=== PATIENT | female | born 2000 | race Caucasian/White ===

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

== ENCOUNTER 2021-08-17 17:06 | Emergency (ER) | payer BC ==
[2021-08-17 19:17] LABS: Appearance,Urine Clear (Clear); Bacteria,Urine Occasional /hpf; Bilirubin,Urine Negative (Negative); Blood,Urine Negative (Negative); Color,Urine Yellow; Glucose,Urine (UA) Negative (Negative); Ketones,Urine Negative (Negative); Leukocyte Esterase,Urine Trace (Negative); Mucus,Urine Few /hpf; Nitrite,Urine Negative (Negative); PH, Urine 6.5 (5.0-8.0); Protein,Urine Trace (Negative); RBC,Urine 10 /hpf (0-5); Specific Gravity,Urine 1.029 (1.001-1.035); Squamous Epithelial Cell,Urine 1 /hpf (0-4); WBC,Urine 2 /hpf (0-5)
[2021-08-17] MEDS ORDERED: IBUPROFEN 800 MG TAB PO STA (23:17)
[2021-08-17] MEDS ORDERED: ACETAMINOPHEN TAB 500 MG TAB PO STA (23:17)
--- NOTE | 2021-08-17 23:24 | ED ---
Abdominal Pain HPI - General Chief Complaint: Abdominal Pain Stated Complaint: Abd.Pain Time Seen by Provider: 08/17/21 23:16 Source: patient, RN notes reviewed, old records reviewed Mode of arrival: ambulatory Limitations: no limitations - History of Present Illness Initial Comments: This is a 21-year-old female to the ER today for evaluation. Patient's pain today for evaluation of left lower quadrant abdominal pain. Patient has significant with recurrent abdominal pain of sudden onset started today no red similar pain before. She states she has history of cyst pain is worse. Patient has no fevers no travel history no sick contacts no known significant complaint. No medical history takes no medications. MD Complaint: abdominal pain -: hour(s) Location: LLQ Radiation: suprapubic Migration to: LLQ Severity: moderate Severity scale (1-10): 7 Quality: stabbing, sharp Consistency: constant Improves With: nothing Worsens With: nothing Associated Symptoms: nausea, vomiting Treatments Prior to Arrival: other (none) - Related Data Home Medications Medication Instructions Recorded Confirmed No Known Home Medications 12/16/17 12/16/17 Allergies Allergy/AdvReac Type Severity Reaction Status Date / Time Penicillins Allergy Unknown Verified 08/17/21 18:48 Review of Systems ROS Statement: Those systems with pertinent positive or pertinent negative responses have been documented in the HPI. ROS Other: All systems not noted in ROS Statement are negative. Past Medical History Past Medical History: Asthma Additional Past Medical History / Comment(s): dx of depression with psycotic features History of Any Multi-Drug Resistant Organisms: None Reported Past Surgical History: Ear Surgery Additional Past Surgical History / Comment(s): tubes Past Psychological History: Anxiety, Depression Smoking Status: Never smoker Past Alcohol Use History: None Reported Past Drug Use History: None Reported General Exam Limitations: no limitations General appearance: alert, in no apparent distress Head exam: Present: atraumatic, normocephalic, normal inspection Eye exam: Present: normal appearance, PERRL, EOMI. Absent: scleral icterus, conjunctival injection, periorbital swelling ENT exam: Present: normal exam, mucous membranes moist Neck exam: Present: normal inspection. Absent: tenderness, meningismus, lymphadenopathy Respiratory exam: Present: normal lung sounds bilaterally. Absent: respiratory distress, wheezes, rales, rhonchi, stridor Cardiovascular Exam: Present: normal rhythm, tachycardia, normal heart sounds. Absent: systolic murmur, diastolic murmur, rubs, gallop, clicks GI/Abdominal exam: Present: tenderness (Left lower quadrant), guarding, normal bowel sounds. Absent: distended, rebound, rigid Extremities exam: Present: normal inspection, full ROM, normal capillary refill. Absent: tenderness, pedal edema, joint swelling, calf tenderness Back exam: Present: normal inspection Neurological exam: Present: alert, oriented X3, CN II-XII intact Psychiatric exam: Present: normal affect, normal mood Skin exam: Present: warm, dry, intact, normal color. Absent: rash Course Vital Signs 08/17/21 08/18/21 18:48 03:01 Temperature 100.0 F H 98.2 F Pulse Rate 107 H 81 Respiratory 20 16 Rate Blood Pressure 127/68 124/74 O2 Sat by Pulse 99 99 Oximetry - Reevaluation(s) Reevaluation #1: 08/18/21 04:28 Record is reviewed Reevaluation #2: 08/18/21 04:28 Patient has no improvement or pain control medication Reevaluation #3: 08/18/21 04:28 Patient and her father informed results and questions have been answered Medical Decision Making - Medical Decision Making 21 female to the emergency department I for evaluation of severe abdominal pain left lower quadrant patient has fibroid uterus, otherwise no significant acute findings a patient can be discharged home to follow-up with OB - Lab Data Result diagrams: 08/18/21 01:37 08/18/21 01:37 Lab Results 08/17/21 08/17/21 08/17/21 Range/Units 19:02 19:02 23:21 WBC (4.0-11.0) k/uL RBC (3.80-5.40) m/uL Hgb (11.4-16.0) gm/dL Hct (34.0-46.0) % MCV (80.0-100.0) fL MCH (25.0-35.0) pg MCHC (31.0-37.0) g/dL RDW (11.5-15.5) % Plt Count (150-450) k/uL MPV Neutrophils % % Lymphocytes % % Monocytes % % Eosinophils % % Basophils % % Neutrophils # (1.3-7.7) k/uL Lymphocytes # (1.0-4.8) k/uL Monocytes # (0-1.0) k/uL Eosinophils # (0-0.7) k/uL Basophils # (0-0.2) k/uL Hypochromasia Microcytosis Sodium (137-145) mmol/L Potassium (3.5-5.1) mmol/L Chloride (98-107) mmol/L Carbon Dioxide (22-30) mmol/L Anion Gap mmol/L BUN (7-17) mg/dL Creatinine (0.52-1.04) mg/dL Est GFR (CKD-EPI)AfAm (>60 ml/min/1.73 sqM) Est GFR (CKD-EPI)NonAf (>60 ml/min/1.73 sqM) Glucose (74-99) mg/dL Calcium (8.4-10.2) mg/dL Total Bilirubin (0.2-1.3) mg/dL AST (14-36) U/L ALT (4-34) U/L Alkaline Phosphatase (38-126) U/L Total Protein (6.3-8.2) g/dL Albumin (3.5-5.0) g/dL Amylase (30-110) U/L Lipase (23-300) U/L Urine Color Yellow Urine Appearance Clear (Clear) Urine pH 6.5 (5.0-8.0) Ur Specific [place] 1.029 (1.001-1.035) Urine Protein Trace H (Negative) Urine Glucose (UA) Negative (Negative) Urine Ketones Negative (Negative) Urine Blood Negative (Negative) Urine Nitrite Negative (Negative) Urine Bilirubin Negative (Negative) Urine Urobilinogen 2.0 (<2.0) mg/dL Ur Leukocyte Esterase Trace H (Negative) Urine RBC 10 H (0-5) /hpf Urine WBC 2 (0-5) /hpf Ur Squamous Epith Cells 1 (0-4) /hpf Urine Bacteria Occasional H (None) /hpf Urine Mucus Few H (None) /hpf Urine HCG, Qual Not Detected (Not Detectd) Coronavirus (PCR) Not Detected (Not Detectd) 08/18/21 08/18/21 Range/Units 01:37 01:37 WBC 9.2 (4.0-11.0) k/uL RBC 4.79 (3.80-5.40) m/uL Hgb 11.6 (11.4-16.0) gm/dL Hct 37.1 (34.0-46.0) % MCV 77.5 L (80.0-100.0) fL MCH 24.2 L (25.0-35.0) pg MCHC 31.3 (31.0-37.0) g/dL RDW 15.7 H (11.5-15.5) % Plt Count 403 (150-450) k/uL MPV 6.1 Neutrophils % 66 % Lymphocytes % 24 % Monocytes % 7 % Eosinophils % 1 % Basophils % 0 % Neutrophils # 6.1 (1.3-7.7) k/uL Lymphocytes # 2.2 (1.0-4.8) k/uL Monocytes # 0.6 (0-1.0) k/uL Eosinophils # 0.1 (0-0.7) k/uL Basophils # 0.0 (0-0.2) k/uL Hypochromasia Moderate Microcytosis Slight Sodium 135 L (137-145) mmol/L Potassium 3.6 (3.5-5.1) mmol/L Chloride 101 (98-107) mmol/L Carbon Dioxide 24 (22-30) mmol/L Anion Gap 10 mmol/L BUN 9 (7-17) mg/dL Creatinine 0.62 (0.52-1.04) mg/dL Est GFR (CKD-EPI)AfAm >90 (>60 ml/min/1.73 sqM) Est GFR (CKD-EPI)NonAf >90 (>60 ml/min/1.73 sqM) Glucose 91 (74-99) mg/dL Calcium 9.4 (8.4-10.2) mg/dL Total Bilirubin 0.9 (0.2-1.3) mg/dL AST 31 (14-36) U/L ALT 28 (4-34) U/L Alkaline Phosphatase 99 (38-126) U/L Total Protein 7.4 (6.3-8.2) g/dL Albumin 4.0 (3.5-5.0) g/dL Amylase 67 (30-110) U/L Lipase 55 (23-300) U/L Urine Color Urine Appearance (Clear) Urine pH (5.0-8.0) Ur Specific [place] (1.001-1.035) Urine Protein (Negative) Urine Glucose (UA) (Negative) Urine Ketones (Negative) Urine Blood (Negative) Urine Nitrite (Negative) Urine Bilirubin (Negative) Urine Urobilinogen (<2.0) mg/dL Ur Leukocyte Esterase (Negative) Urine RBC (0-5) /hpf Urine WBC (0-5) /hpf Ur Squamous Epith Cells (0-4) /hpf Urine Bacteria (None) /hpf Urine Mucus (None) /hpf Urine HCG, Qual (Not Detectd) Coronavirus (PCR) (Not Detectd) - Radiology Data Radiology results: report reviewed (Ultrasound of Groin and Pelvis Are Negative for Significant Acute Disease, CT head and pelvis is negative for acute disease), image reviewed Disposition Clinical Impression: Abdominal pain, Ovarian cyst, Uterine fibroid Disposition: HOME SELF-CARE Condition: Good Instructions (If sedation given, give patient instructions): Pelvic Pain in Women (ED), Endometriosis (ED), Ovarian Cyst (ED) Is patient prescribed a controlled substance at d/c from ED?: No Referrals: None,Stated [Primary Care Provider] - 1-2 days
--- NOTE | 2021-08-18 00:43 | US ---
EXAMINATION TYPE: US groin LT DATE OF EXAM: 08/18/2021 COMPARISON: NONE CLINICAL HISTORY: pain. Pain within the left groin. Scanned LLQ at patient's area of pain. Hypoechoic area with hyperechoic center seen within the left groin measuring 0.8 x 1.1 x 0.7 cm. No o ther findings at this time by ultrasound. IMPRESSION: 11 mm lymph node is demonstrated. No evidence for hernia. No free fluid.
[2021-08-18] MEDS ORDERED: PANTOPRAZOLE 40 MG/10 ML VIAL IVP STA (01:29)
[2021-08-18] MEDS ORDERED: MORPHINE SULFATE 4 MG/ML SYRINGE IV STA (01:29)
[2021-08-18] MEDS ORDERED: ONDANSETRON 4 MG/2 ML VIAL IVP STA (01:29)
[2021-08-18] MEDS ORDERED: SODIUM CHLORIDE 0.9% 1,000 ML IV STA ×2 (01:29)
[2021-08-18] MEDS ORDERED: KETOROLAC 15 MG/ML 1 ML VIAL IVP STA (01:29)
[2021-08-18 01:52] LABS: Basophils % (A) 0 %; Eosinophils # (A) 0.1 k/uL (0-0.7); Eosinophils % (A) 1 %; HCT 37.1 % (34.0-46.0); HGB 11.6 gm/dL (11.4-16.0); Hypochromasia Moderate; Lymphocytes # (A) 2.2 k/uL (1.0-4.8); Lymphocytes % (A) 24 %; MCH 24.2 pg (25.0-35.0); MCHC 31.3 g/dL (31.0-37.0); MCV 77.5 fL (80.0-100.0); Mean Platelet Volume 6.1; Microcytosis Slight; Monocytes # (A) 0.6 k/uL (0-1.0); Monocytes % (A) 7 %; Neutrophils # (A) 6.1 k/uL (1.3-7.7); Neutrophils % (A) 66 %; Platelet Count 403 k/uL (150-450); RBC 4.79 m/uL (3.80-5.40); RDW 15.7 % (11.5-15.5); WBC 9.2 k/uL (4.0-11.0)
[2021-08-18 02:07] LABS: ALT 28 U/L (4-34); AST 31 U/L (14-36); African American GFR (CKD) >90 (>60 ml/min/1.73 sqM); Alkaline Phosphatase 99 U/L (38-126); Amylase 67 U/L (30-110); Anion Gap 10 mmol/L; Blood Urea Nitrogen 9 mg/dL (7-17); Calcium 9.4 mg/dL (8.4-10.2); Carbon Dioxide 24 mmol/L (22-30); Chloride 101 mmol/L (98-107); Glucose 91 mg/dL (74-99); Lipase 55 U/L (23-300); Non-African American GFR(CKD) >90 (>60 ml/min/1.73 sqM); Potassium 3.6 mmol/L (3.5-5.1); Sodium 135 mmol/L (137-145); Total Bilirubin 0.9 mg/dL (0.2-1.3); Total Protein 7.4 g/dL (6.3-8.2)
--- NOTE | 2021-08-18 02:52 | XR ---
EXAMINATION TYPE: XR KUB DATE OF EXAM: 08/18/2021 COMPARISON: NONE HISTORY: Pain TECHNIQUE: 2 views upright FINDINGS: Bowel gas pattern is normal. There is no sign of intestinal obstruction or pneumoperitoneum . Fecal pattern is normal. There is no evidence of a mass. IMPRESSION: Nonacute abdomen.
[2021-08-18 03:02] VITALS: RESP 16
--- NOTE | 2021-08-18 03:31 | US ---
EXAMINATION TYPE: US transvaginal DATE OF EXAM: 08/18/2021 COMPARISON: NONE CLINICAL HISTORY: torsion. Left-sided pain. Hx ovarian cyst. TECHNIQUE: Transvaginal (TV). Patient has not had prior TV exam, she consents to TV. Requested Dr. Coleman to insert probe- present for exam. Date of LMP: Unknown. EXAM MEASUREMENTS: Uterus: 7.1 x 5.9 x 4.5 cm Endometrial Stripe: 0.1 cm Right Ovary: Two areas seen in right adnexa. Difficult to determine which is right ovarian tissue. Fi rst area measures 4.0 x 3.1 x 2.8 cm. Anechoic area seen within: 2.3 x 2.3 x 2.1 cm. Second area albino sures 3.2 x 2.4 x 2.3 cm. Anechoic area seen within: 3.2 x 1.4 x 2.3 cm. Left Ovary: 3.0 x 2.1 x 1.2 cm 1. Uterus: Anteverted 2. Endometrium: 0.1 cm. 3. Right Ovary: Two areas seen in right adnexa as mentioned above. 4. Left Ovary: Follicles seen. Spectral, color and waveform doppler imaging shows arterial and venous flow within the areas measur ed in right adnexa. Slightly limited evaluation of left ovary due to position posterior to the uterus . Limited images appear to show arterial and venous flow. 5. Bilateral Adnexa: 6. Posterior cul-de-sac: Minimal fluid seen. IMPRESSION: There is no evidence of ovarian torsion. There are complex cysts on the right ovary. No free fluid. N ormal uterus.
--- NOTE | 2021-08-18 04:42 | CT ---
EXAMINATION TYPE: CT abdomen pelvis w con DATE OF EXAM: 08/18/2021 COMPARISON: None HISTORY: left lower abd pain CT DLP: 984.7 mGycm Automated exposure control for dose reduction was used. CONTRAST: Performed with IV Contrast, patient injected with 100 mL of Isovue 300. The lung bases are clear. There is no pleural effusion. Heart size is normal. There is no pericardial effusion. Liver spleen and stomach pancreas gallbladder appear normal. The bile ducts are not dilate d. There is no adrenal mass. Kidneys show satisfactory contrast opacification. There is no hydronephrosi s. Appendix is posterior and appears normal. There is no retroperitoneal adenopathy. Urinary bladder is almost empty. There is 2.5 cm cyst on the right ovary. Uterus is anteverted. There is probably pos terior wall uterine fibroid. Lumbar vertebra is normal alignment. Posterior elements are intact. Disc spaces are normal. Bony pelv is appears intact. There is no inguinal hernia. There is no free fluid in the pelvis. There is no mesenteric edema. Ther e is no ascites or free air. There is no bowel obstruction.
[2021-08-18 04:50] VITALS: BP 133/71; PULSE 84; TEMP 97.6
== END 2021-08-18 04:55 | disposition home or self-care (01) ==
LOC: EC 17:06
DX: N83.202 Unspecified ovarian cyst, left side (principal); D25.9 Leiomyoma of uterus, unspecified; Z20.822 Contact with and (suspected) exposure to COVID-19; J45.909 Unspecified asthma, uncomplicated; Z88.0 Allergy status to penicillin
CPT/HCPCS: 80053; 82150; 83690; 85025; 81001; 81025; 87635; 74018; 93975; 76830; 76882; 74177; 96374; 96375 ×2; 96361 ×2; 99284; J2405; J1885; C9113; Q9967